=== PATIENT | female | born 1970 | race Caucasian/White ===

== ENCOUNTER 2019-06-10 09:07 | Emergency (ER) | payer BC ==
[~2019-06-10] VITALS: Ht 165.1 cm; Wt 78.9 kg
[~2019-06-10 09:07] MED LIST: ALBU2.5V8 IH; ALBU2.5V8 INH; ALPR0.254 PO; AMOX1TAB10 PO; BENZ-8 PO; CITA40TA5 PO; FLUT16SP21 NS; GUAI-108 PO; LEVO750T31 PO; OMEP20CA10 PO; PHEN37.53 PO; TOPI25TA7 PO
[2019-06-10] MEDS ORDERED: ADENOSINE 6 MG/2 ML VIAL IV ONE ×2 (09:19→09:30)
--- NOTE | 2019-06-10 09:21 | PHYS DOC ---
Past History Past Medical History: Other Past Surgical History: Other Alcohol Use: None Drug Use: None Adult General Chief Complaint Chief Complaint: CHEST PAIN [facility] HPI Patient is a 49-year-old female presenting with chief complaint of fast heart rate chest tightness seemed feel short of breath has felt this way since this morning did have some arm pain both arms the last couple of days but just started feeling bad like this when she woke up no prior history of svt. Patient does take a control pill every day she takes some antidepressant medication she had bariatric surgery 2-3 years ago she denies smoking alcohol or drugs. No allergies to any medications symptoms are moderate slowly worsening with time Review of Systems Review of Systems Constitutional: Denies fever or chills [] Eyes: Denies change in visual acuity, redness, or eye pain [] HENT: Denies nasal congestion or sore throat [] Respiratory: Denies cough or shortness of breath [] Cardiovascular: No additional information not addressed in HPI [] GI: Denies abdominal pain, nausea, vomiting, bloody stools or diarrhea [] : Denies dysuria or hematuria [] Musculoskeletal: Denies back pain or joint pain [] Integument: Denies rash or skin lesions [] Neurologic: Denies headache, focal weakness or sensory changes [] Endocrine: Denies polyuria or polydipsia [] All other systems were reviewed and found to be within normal limits, except as documented in this note. Allergies Allergies Allergies Coded Allergies Type Severity Reaction Last Updated Verified No Known Drug Allergies 08/07/16 No Physical Exam Physical Exam Constitutional: Well developed, well nourished, mild distress, non-toxic appearance. [] HENT: Normocephalic, atraumatic, bilateral external ears normal, oropharynx moist, no oral exudates, nose normal. [] Eyes: PERRLA, EOMI, conjunctiva normal, no discharge. [] Neck: Normal range of motion, no tenderness, supple, no stridor. [] Cardiovascular: Tachycardic regular lungs clear no wheezes or rhonchi noted Abdomen: Bowel sounds normal, soft, no tenderness, no masses, no pulsatile masses. [] Skin: Warm, dry, no erythema, no rash. [] Back: No tenderness, no CVA tenderness. [] Extremities: No tenderness, no cyanosis, no clubbing, ROM intact, no edema. [] Neurologic: Alert and oriented X 3, normal motor function, normal sensory function, no focal deficits noted. [] Psychologic: Affect normal, judgement normal, mood normal. [] Current Patient Data Vital Signs Blood Pressure Assessment Label 158/90 * Mean 112 Blood Pressure Systolic * 158 mm Hg (100-140) H Blood Pressure Diastolic * 90 mm Hg (60-100) Pulse Rate * 108 beats per minute (60-90) H Respiratory Rate * 26 breaths per minute (12-24) H Bedside Pulse Oximetry * 99 % EKG EKG EKG #1 did show SVT with a rate in the 170s EKG #2 done after adenosine did show a normal sinus rhythm with rate of 93 there was no acute ischemic changes or STEMI noted.[] Radiology/Procedures Radiology/Procedures [] Impressions: CT negative for PE I did tell the patient about the pulmonary artery finding and the need for follow-up Course & Med Decision Making Course & Med Decision Making Pertinent Labs and Imaging studies reviewed. (See chart for details) []svt adenosine given which poked rhythm checked ddimer due to ocp status CT was negative for PE 2 troponins out of an abundance of caution given the family history of coronary artery disease checked electrolytes. Patient was observed in the emergency department with resolution of symptoms she felt much better she was discharged home stable condition she was recommended follow-up with primary care doctor for further evaluation and follow-up Dragon Disclaimer Dragon Disclaimer This electronic medical record was generated, in whole or in part, using a voice recognition dictation system. Departure Departure: Impression: Primary Impression: Supraventricular tachycardia Disposition: HOME, SELF-CARE Condition: STABLE Referrals: SHORTY GAMEZ MD (PCP) LOREN YU MD Jun 10, 2019 09:21
--- NOTE | 2019-06-10 09:27 | EKG ---
[address] [address] Test Date: 2019-06-10 Test Time: 09:23:21 Pat Name: ROBERTO PABLO Department: Room: Gender: F Cement Mason Helper: IVETH : 1970 Requested By: LOREN YU Order Number: [id number] Reading MD: Measurements Intervals [place] Rate: 175 P: DE: QRS: 9 QRSD: 78 T: -20 QT: 262 QTc: 452 Interpretive Statements SUPRAVENTRICULAR TACHYCARDIA INCOMPLETE RIGHT BUNDLE BRANCH BLOCK ST & T ABNORMALITY, CONSIDER ANTEROLATERAL ISCHEMIA OR LEFT VENTRICULAR STRAIN INFEROLATERAL ISCHEMIA OR LEFT VENTRICULAR STRAIN ABNORMAL ECG RI6.01 Compared to ECG 08/07/2016 22:30:43 T-wave abnormality now present Possible ischemia now present Sinus rhythm no longer present
[2019-06-10] MEDS ORDERED: IV NORMAL SALINE 500ML 500 ML IV ONE (09:30)
--- NOTE | 2019-06-10 09:39 | EKG ---
[address] [address] Test Date: 2019-06-10 Test Time: 09:33:48 Pat Name: ROBERTO PABLO Department: Room: Gender: F Senior Administrative Assistant: IVETH : 1970 Requested By: LOREN YU Order Number: [id number] Reading MD: Measurements Intervals [place] Rate: 93 P: -11 [place]: 140 QRS: -7 QRSD: 90 T: -14 QT: 360 QTc: 450 Interpretive Statements SINUS RHYTHM LEFTWARD AXIS QRS(T) CONTOUR ABNORMALITY CONSIDER ANTEROLATERAL MYOCARDIAL DAMAGE T ABNORMALITY IN INFERIOR LEADS ABNORMAL ECG RI6.01 Compared to ECG 08/07/2016 22:30:43 Left-axis deviation now present T-wave abnormality now present Incomplete right bundle-branch block no longer present
[2019-06-10 09:57] LABS: BASO % 1 % (0-3); EOS # 0.1 x10^3/uL (0.0-0.7); EOS % 2 % (0-3); HEMATOCRIT 48.1 % (36.0-47.0); HEMOGLOBIN 15.8 g/dL (12.0-15.5); LYMPH # 1.5 x10^3/uL (1.0-4.8); LYMPH % 26 % (24-48); MEAN CORPUSCULAR HEMOGLOBIN 30 pg (25-35); MEAN CORPUSCULAR HGB CONC 33 g/dL (31-37); MEAN CORPUSCULAR VOLUME 92 fL (79-100); MONO # 0.5 x10^3/uL (0.0-1.1); MONO % 9 % (0-9); NEUT # 3.6 x10^3uL (1.8-7.7); NEUT % 63 % (31-73); PLATELET COUNT 244 x10^3/uL (140-400); RED BLOOD COUNT 5.23 x10^6/uL (3.50-5.40); RED CELL DISTRIBUTION WIDTH 14.3 % (11.5-14.5); WHITE BLOOD COUNT 5.7 x10^3/uL (4.0-11.0)
[2019-06-10 10:11] LABS: ALBUMIN 3.6 g/dL (3.4-5.0); ALBUMIN/GLOBULIN RATIO 0.9 (1.0-1.7); CALCIUM 8.8 mg/dL (8.5-10.1); CREATININE 0.9 mg/dL (0.6-1.0); GFR 66.8; POTASSIUM 3.6 mmol/L (3.5-5.1); TOTAL BILIRUBIN 0.4 mg/dL (0.2-1.0); TOTAL PROTEIN 7.8 g/dL (6.4-8.2)
--- NOTE | 2019-06-10 10:23 | RAD ---
EXAM: CHEST 1 VIEW History: Shortness of breath COMPARISON: 08/07/2016 TECHNIQUE: Single portable radiograph of the chest FINDINGS: The cardiac silhouette is unremarkable. The lungs are clear bilaterally. The costophrenic sulci are clear and well demarcated. IMPRESSION: No radiographic evidence of an acute cardiopulmonary process. Electronically signed by: Randell Lopez MD (06/10/2019 10:20 AM) [id number]
[2019-06-10] MEDS ORDERED: IOHEXOL 350 MG/ML 100 ML VIAL. IV ONE (11:15)
--- NOTE | 2019-06-10 11:41 | RAD ---
CT ANGIOGRAPHY CHEST History: Tachycardia. Shortness of breath. Elevated d-dimer. Chest pain. Technique: CT of the chest was performed with contrast. PE protocol. Maximum intensity projection coronal and sagittal reconstructions were performed. Exposure: One or more of the following individualized dose reduction techniques were utilized for this examination: 1. Automated exposure control 2. Adjustment of the mA and/or kV according to patient size 3. Use of iterative reconstruction technique. Comparison: None Findings: Chest: No evidence of pulmonary embolism. Enlarged pulmonary artery measures 2.4 cm. No aortic dissection. No pathologic axillary, mediastinal or hilar adenopathy. Mild mosaic attenuation, may indicate small airways disease. Bilateral lower lobe subsegmental atelectasis. No focal consolidation. No pleural effusion. Upper abdomen: Postop changes of the stomach. Bones: No pathologic osseous lesions. Impression: 1. No pulmonary embolism. 2. Enlarged pulmonary artery, may indicate pulmonary artery hypertension. 3. Mild mosaic attenuation of the lungs, may relate to small airways disease. Electronically signed by: Lai Ellsworth DO (06/10/2019 11:38 AM) [id number]
[2019-06-10 12:50] VITALS: BP 138/78
== END 2019-06-10 12:52 | disposition home or self-care (01) ==
LOC: ER 09:07
DX: I47.1 Supraventricular tachycardia (principal)
CPT/HCPCS: 36415; 71045; 71275; 80053; 83735; 84484; 84702; 85025; 85379; 93005; 96374; 99285; J0153; J7040; Q9967; 96361

== ENCOUNTER → 2021-06-03 | Outpatient (CLI) | payer BC ==
[~2021-06-03] MED LIST changes: -CITA40TA5 PO; +CITA40TA6 PO; -OMEP20CA10 PO; +OMEP20CA16 PO
--- NOTE | 2021-06-03 15:29 | RAD ---
EXAM: XR KNEE 4 VIEWS WITH PATELLA_RT 06/03/2021 11:39 AM CLINICAL INDICATION: Right knee pain, fell one week ago COMPARISON: None TECHNIQUE: 4 views of the right knee FINDINGS: No acute fracture. Alignment is normal. Joint spaces are maintained. There is no joint eff usion or soft tissue abnormality. IMPRESSION: No acute osseous abnormality of the right knee. Electronically signed by: Nicole Santana MD (06/03/2021 3:27 PM) [id number]
== END ==
LOC: RAD 11:30
PROVIDERS: ATTEND Physician Assistant
DX: M25.561 Pain in right knee (principal); W19.XXXA Unspecified fall, initial encounter
CPT/HCPCS: 73564

== ENCOUNTER 2021-10-14 13:00 | Emergency (ER) | payer BC ==
[~2021-10-14] VITALS: Ht 165.1 cm; Wt 107.0 kg
[2021-10-14] MEDS ORDERED: ONDANSETRON PF 4 MG/2 ML VIAL. IVP ONE (13:30)
[2021-10-14] MEDS ORDERED: MECLIZINE 12.5 MG TABLET. PO ONE (13:30)
[2021-10-14] MEDS ORDERED: IV NORMAL SALINE 1,000ML 1,000 ML IV ONE (13:30)
--- NOTE | 2021-10-14 13:30 | PHYS DOC ---
Past History Past Medical History: No Pertinent History Past Surgical History: Other Additional Past Surgical Histo: bariatric Alcohol Use: None Drug Use: None General Adult EDM: Chief Complaint: DIZZY/LIGHT HEADED HPI: HPI: Patient is a 51-year-old female who presents to the emergency department for dizziness. Patient reports that approximately 1/2 hours ago she started feeling hot and nauseous with lightheadedness. She reports that she started feeling like her heart was racing. She checked her heart rate and it was 140 bpm at home. She reports that the tachycardia lasted approximately an hour. She is still currently reporting lightheadedness that is worse with head movements and eye movements. She states that the lightheadedness is not worse with position changes. She reports that the room is not spinning. She denies any vomiting, headache, blurred vision/double vision, chest pain, cough, fever, shortness of breath. She has a history of migraine headaches, anxiety/depression and SVT. She reports that she was seen in the emergency department for SVT at 1 point and received a medication in the ER was discharged home to follow-up with Dr. Edmondson at [facility]. She reports that she followed up with him and he wanted to place her on medication. She reports that when she went to get the medication filled the pharmacist told her that there was an interaction with that medication and her venlafaxine that she is on. She reports that she contacted Dr. Edmondson after several months and he advised her that she did not need to take the medication that he discharged her home with. Review of Systems: Review of Systems: Constitutional: see HPI Eyes: see HPI HENT: see HPI Respiratory: see HPI Cardiovascular: see HPI GI: see HPI Neurologic: see HPI Allergies: Allergies: Allergies Coded Allergies Type Severity Reaction Last Updated Verified Fish Containing Products Allergy Unknown 10/14/21 Yes cinnamon Allergy Unknown 10/14/21 Yes Physical Exam: PE: Constitutional: Well developed, well nourished, no acute distress, non-toxic a ppearance. [] HENT: Normocephalic, atraumatic, bilateral external ears normal, oropharynx moist, no oral exudates, nose normal. [] Eyes: PERRL,4mm bilaterally, EOMI, conjunctiva normal, no discharge. [] Neck: Normal range of motion, no stridor Cardiovascular:Heart rate regular rhythm, no murmur [] Lungs & Thorax: Bilateral breath sounds clear to auscultation [] Abdomen: Bowel sounds normal, soft, no tenderness, no masses, no pulsatile masses. [] Skin: Warm, dry, no erythema, no rash. [] Back: Normal ROM Extremities: No tenderness, no cyanosis, no clubbing, ROM intact, no edema. [] Neurologic: Alert and oriented X 3, normal motor function, normal sensory function, no focal deficits noted. [] Psychologic: Affect normal, judgement normal, mood normal. [] Current Patient Data: Labs: Laboratory Tests Test 10/14/21 13:08 10/14/21 13:35 Urine Collection Type Clean catch Urine Color Yellow Urine Clarity Clear Urine pH 6.0 Urine Specific [place] 1.025 Urine Protein Neg Urine Glucose (UA) Neg mg/dL Urine Ketones (Stick) Neg mg/dL Urine Blood Neg Urine Nitrite Neg Urine Bilirubin Neg Urine Urobilinogen Dipstick 0.2 mg/dL Urine Leukocyte Esterase Neg Urine RBC 0 /HPF Urine WBC 0 /HPF Urine Squamous Epithelial Cells None /LPF Urine Bacteria 0 /HPF White Blood Count 5.5 x10^3/uL Red Blood Count 5.02 x10^6/uL Hemoglobin 15.4 g/dL Hematocrit 46.4 % Mean Corpuscular Volume 92 fL Mean Corpuscular Hemoglobin 31 pg Mean Corpuscular Hemoglobin Concent 33 g/dL Red Cell Distribution Width 13.4 % Platelet Count 238 x10^3/uL Neutrophils (%) (Auto) 59 % Lymphocytes (%) (Auto) 29 % Monocytes (%) (Auto) 7 % Eosinophils (%) (Auto) 2 % Basophils (%) (Auto) 2 % Neutrophils # (Auto) 3.3 x10^3uL Lymphocytes # (Auto) 1.6 x10^3/uL Monocytes # (Auto) 0.4 x10^3/uL Eosinophils # (Auto) 0.1 x10^3/uL Basophils # (Auto) 0.1 x10^3/uL Sodium Level 138 mmol/L Potassium Level 4.9 mmol/L Chloride Level 106 mmol/L Carbon Dioxide Level 24 mmol/L Anion Gap 8 Blood Urea Nitrogen 13 mg/dL Creatinine 0.7 mg/dL Estimated GFR (Cockcroft-Gault) 88.6 BUN/Creatinine Ratio 19 Glucose Level 92 mg/dL Calcium Level 9.2 mg/dL Magnesium Level 2.4 mg/dL Total Bilirubin 0.5 mg/dL Aspartate Amino Transf (AST/SGOT) 25 U/L Alanine Aminotransferase (ALT/SGPT) 21 U/L Alkaline Phosphatase 89 U/L Troponin I High Sensitivity 5 ng/L Total Protein 7.0 g/dL Albumin 3.8 g/dL Albumin/Globulin Ratio 1.2 Current Medications Medications (Trade) Dose Ordered Sig/Laura Route PRN Reason Start Time Stop Time Status Last Admin Dose Admin Sodium Chloride 1,000 ml @ 1,000 mls/hr 1X ONCE IV 10/14/21 13:30 10/14/21 14:29 DC 10/14/21 13:40 Ondansetron HCl (Zofran) 4 mg 1X ONCE IVP 10/14/21 13:30 10/14/21 13:31 DC 10/14/21 13:40 Meclizine HCl (Antivert) 25 mg 1X ONCE PO 10/14/21 13:30 10/14/21 13:31 DC 10/14/21 13:41 EKG: EKG: EKG performed by ER staff at 1327 shows sinus rhythm, rate of 76, QTc of 426, no STEMI read by Dr. Lara at 1330. [] Radiology/Procedures: Radiology/Procedures: []PROCEDURE: PORTABLE CHEST 1V EXAM: CHEST ONE VIEW. HISTORY: Tachycardia. COMPARISON: 06/11/2019. FINDINGS: A frontal view of the chest is obtained. There are no confluent infiltrates. There is no pneumothorax or pleural effusion. The heart is not enlarged. IMPRESSION: 1. No confluent infiltrates. Electronically signed by: Sarah Garcia MD (10/14/2021 1:50 PM) [id number] DICTATED AND SIGNED BY: PAMELA GARCIA MD DATE: 10/14/21 1350 CC: LILIA FOWLER [employer]; NATANAEL TOLEDO PAC ~MTH0 0 Heart Score: C/O Chest Pain: No Risk Factors: Risk Factors: DM, Current or recent (<one month) smoker, HTN, HLP, family h istory of CAD, obesity. Risk Scores: Score 0 - 3: 2.5% MACE over next 6 weeks - Discharge Home Score 4 - 6: 20.3% MACE over next 6 weeks - Admit for Clinical Observation Score 7 - 10: 72.7% MACE over next 6 weeks - Early Invasive Strategies Course & Med Decision Making: Course & Med Decision Making Pertinent Labs and Imaging studies reviewed. (See chart for details) [] Patient presents to the emergency department with lightheadedness and nausea. Patient reports that she has a history of tachycardia/SVT. She reports that an hour and a half ago she had tachycardia with a heart rate of 140. The heart rate has improved and she is 98 bpm. She is still reporting lightheadedness and nausea. Patient has followed up with [facility] who wanted to place her on medication but due to medication issues this medication was discontinued. Work- up in the ER consisted of blood work including troponin and TSH, EKG, chest x- ray. Patient treated with IV fluids, nausea medication and Antivert. CBC, UA CMP and troponin were unremarkable. TSH is a send out and she will be notified of those results. Chest x-ray shows no acute findings. Patient has not had any episodes of tachycardia or SVT while in the emergency department. Following treatment in the emergency department, her dizziness has resolved.Discssed with supervising physician. Patient is advised to follow-up with Dr. Edmondson regarding her episode today and discuss medication management. I discussed with patient all findings and diagnostic testing as well as the need to follow-up with PCP for further evaluation and treatment or return to the ER if any new or worsening symptoms. Strict return precautions were also discussed at length. Patient voiced understanding and agreement with the plan. Patient is hemodynamically stable at the time of disposition. Joseon Disclaimer: Ian Disclaimer: This electronic medical record was generated, in whole or in part, using a voice recognition dictation system. Departure Departure: Impression: Primary Impression: Dizziness Disposition: HOME / SELF CARE / HOMELESS Condition: GOOD Referrals: NATANAEL TOLEDO PAC (PCP) ANKUR EDMONDSON MD Patient Instructions: Dizziness, Ozig-[id number], Nonspecific Tachycardia Additional Instructions: You are seen in the emergency department today for dizziness and rapid heart rate. Your findings were unremarkable. You were not noted to have any episode of tachycardia or SVT while in the emergency department today. Please increase your fluids and rest. Continue to monitor your heart rate at home. Change positions slowly if you are feeling lightheaded with position changes. Please follow-up with Dr. Edmondson as soon as possible, call his office on discharge or tomorrow morning to set up a follow-up appointment. At this appointment, you should discuss medical management for your SVT. Return to the emergency department if you develop tachycardia, chest pain, shortness of breath, lightheadedness, syncope, intractable nausea or vomiting, high fevers refractory to treatment or any new or worsening concerns. LILIA FOWLER APRN Oct 14, 2021 13:30
[2021-10-14 13:44] LABS: BACTERIA,URINE 0 /HPF (0-FEW); CLARITY,URINE CLEAR; COLOR,URINE YELLOW; GLUCOSE,URINE NEG (NEG); NITRITE,URINE NEG (NEG); RBC,URINE 0 /HPF (0-2); UROBILINOGEN,URINE 0.2 mg/dL (0.2 mg/dL); WBC,URINE 0 /HPF (0-4)
[2021-10-14 13:53] LABS: BASO # 0.1 x10^3/uL (0.0-0.2); BASO % 2 % (0-3); EOS # 0.1 x10^3/uL (0.0-0.7); EOS % 2 % (0-3); HEMATOCRIT 46.4 % (36.0-47.0); HEMOGLOBIN 15.4 g/dL (12.0-15.5); LYMPH # 1.6 x10^3/uL (1.0-4.8); LYMPH % 29 % (24-48); MEAN CORPUSCULAR HEMOGLOBIN 31 pg (25-35); MEAN CORPUSCULAR HGB CONC 33 g/dL (31-37); MEAN CORPUSCULAR VOLUME 92 fL (79-100); MONO # 0.4 x10^3/uL (0.0-1.1); MONO % 7 % (0-9); NEUT # 3.3 x10^3uL (1.8-7.7); NEUT % 59 % (31-73); PLATELET COUNT 238 x10^3/uL (140-400); RED BLOOD COUNT 5.02 x10^6/uL (3.50-5.40); RED CELL DISTRIBUTION WIDTH 13.4 % (11.5-14.5); WHITE BLOOD COUNT 5.5 x10^3/uL (4.0-11.0)
--- NOTE | 2021-10-14 13:53 | RAD ---
EXAM: CHEST ONE VIEW. HISTORY: Tachycardia. COMPARISON: 06/11/2019. FINDINGS: A frontal view of the chest is obtained. There are no confluent infiltrates. There is no pneumothorax or pleural effusion. The heart is not en larged. IMPRESSION: 1. No confluent infiltrates. Electronically signed by: Sarah Garcia MD (10/14/2021 1:50 PM) [id number]
[2021-10-14 14:09] LABS: CALCIUM 9.2 mg/dL (8.5-10.1); CREATININE 0.7 mg/dL (0.6-1.0); GFR 88.6; POTASSIUM 4.9 mmol/L (3.5-5.1)
[2021-10-14 14:14] LABS: ALBUMIN 3.8 g/dL (3.4-5.0); ALBUMIN/GLOBULIN RATIO 1.2 (1.0-1.7); MAGNESIUM 2.4 mg/dL (1.8-2.4); TOTAL BILIRUBIN 0.5 mg/dL (0.2-1.0)
[2021-10-14 14:47] VITALS: BP 105/60
--- NOTE | 2021-10-15 21:56 | EKG ---
[address] [address] Test Date: 2021-10-14 Test Time: 13:27:05 Pat Name: ROBERTO PABLO Department: Room: Gender: F Instructor Of Sociology: IVETH : 1970 Requested By: LILIA FOWLER Order Number: [id number] Reading MD: Measurements Intervals [place] Rate: 76 P: 42 TN: 170 QRS: -6 QRSD: 88 T: 2 QT: 374 QTc: 425 Interpretive Statements SINUS RHYTHM LEFTWARD AXIS INCOMPLETE RIGHT BUNDLE BRANCH BLOCK QRS(T) CONTOUR ABNORMALITY CONSIDER ANTEROSEPTAL MYOCARDIAL DAMAGE POSSIBLY ABNORMAL ECG RI6.01 No previous ECG available for comparison
== END 2021-10-14 14:51 | disposition home or self-care (01) ==
LOC: ER 13:00
DX: R42 Dizziness and giddiness (principal); R11.0 Nausea; R00.0 Tachycardia, unspecified; G43.909 Migraine, unspecified, not intractable, without status migrainosus; Z91.013 Allergy to seafood; Z88.8 Allergy status to other drugs, medicaments and biological substances
CPT/HCPCS: 36415; 71045; 80053; 81001; 83735; 84443; 84484; 85025; 93005; 96374; 99285; J2405; J7030

== ENCOUNTER → 2021-12-24 | Outpatient (CLI) | payer BC ==
--- NOTE | 2021-12-24 17:36 | CARD ---
MR#: [id number] Date of Study: 12/24/2021 Ordering Physician: ANKUR OCONONR, Referring Physician: ANKUR OCONNOR, Tech: Wade Cox [facility] APPROVED REPORT EXAM: Two-dimensional and M-mode echocardiogram with Doppler and color Doppler. Other Information Quality : GoodHR: 66bpm Rhythm : NSR INDICATION Syncope 2D DIMENSIONS Left Atrium(2D)3.5 (1.6-4.0cm)IVSd1.0 (0.7-1.1cm) Aortic Root(2D)2.9 (2.0-3.7cm)LVDd4.5 (3.9-5.9cm) LVOT Diameter1.8 (1.8-2.4cm)PWd1.0 (0.7-1.1cm) LA Qlwend17 (18-58mL)LVDs2.8 (2.5-4.0cm) FS (%) 38.6 %SV64.5 ml Aortic Valve AoV Peak Edwin.149.3cm/sAoV VTI31.7cm AO Peak GR.8.9mmHgLVOT Peak Edwin.130.4cm/s LVOT VTI 26.35cmAO Mean GR.5mmHg RICHARD (VMAX)2.16vl8VLZ (VTI)2.09cm2 Mitral Valve MV E Pnvasaja86.4cm/sMV DECEL PDER393lo MV A Rfvrwuty132.3cm/sE/A Ratio0.8 Pulmonary Valve PV Peak Pgkdobfs885.0cm/sPV Peak Grad.4mmHg Tricuspid Valve TR P. Sqbciorq885qq/sTR Peak Gr.21mmHg Pulmonary Vein S1 Onhvmnhx16.7cm/sD2 Jisvxhxg09.7cm/s LEFT VENTRICLE The left ventricle is normal size. There is normal left ventricular wall thickness. The left ventricu lar systolic function is normal. LV ejection fraction is 55 to 60%. There is normal LV segmental wall motion. Transmitral Doppler flow pattern is Grade I-abnormal relaxation pattern. No left ventricle t hrombus noted on this study. There is no ventricular septal defect visualized. There is no left ventr icular aneurysm. There is no mass noted in the left ventricle. RIGHT VENTRICLE The right ventricle is normal size. There is normal right ventricular wall thickness. The right ventr icular systolic function is normal. ATRIA The left atrium size is normal. The right atrium size is normal. The interatrial septum is intact wit h no evidence for an atrial septal defect or patent foramen ovale as noted on 2-D or Doppler imaging. AORTIC VALVE The aortic valve is normal in structure and function. Doppler and Color Flow revealed no significant aortic regurgitation. There is no significant aortic valvular stenosis. There is no aortic valvular v egetation. MITRAL VALVE The mitral valve is normal in structure and function. There is no evidence of mitral valve prolapse. There is no mitral valve stenosis. Doppler and Color Flow revealed no mitral valve regurgitation note d. TRICUSPID VALVE The tricuspid valve is normal in structure and function. Doppler and Color Flow revealed trace tricus pid regurgitation. The PA pressure was estimated at 23 mmHg. There is no tricuspid valve prolapse or vegetation. There is no tricuspid valve stenosis. PULMONIC VALVE The pulmonary valve is normal in structure and function. Doppler and Color Flow revealed no pulmonic valvular regurgitation. There is no pulmonic valvular stenosis. GREAT VESSELS The aortic root is normal in size. The ascending aorta is normal in size. The pulmonary artery is nor mal. The IVC is normal in size and collapses >50% with inspiration. PERICARDIAL EFFUSION There is no pleural effusion. There is no evidence of significant pericardial effusion. Critical Notification Critical Value: No <Conclusion> The left ventricle is normal size. The left ventricular systolic function is normal. LV ejection fraction is 55 to 60%. Doppler and Color Flow revealed no significant aortic regurgitation. There is no significant aortic valvular stenosis. Doppler and Color Flow revealed no mitral valve regurgitation noted. Doppler and Color Flow revealed trace tricuspid regurgitation. The PA pressure was estimated at 23 mmHg. Signed by : Tristin Jones MD Electronically Approved : 12/24/2021 17:35:55
== END ==
LOC: ECHO 14:44
PROVIDERS: ATTEND Internal Medicine Cardiovascular Disease
DX: I47.1 Supraventricular tachycardia (principal)
CPT/HCPCS: 93306